=== PATIENT | male | born 1935 | race Caucasian/White ===

== ENCOUNTER 2020-08-30 13:20 | Emergency (ER) | payer MEDICARE, OTHER ==
[~2020-08-30] VITALS: Ht 175.3 cm; Wt 73.9 kg
--- NOTE | 2020-08-30 13:57 | NUR ---
MD at bedside for assessment, patient states he is Covid positive and feels like he may have pneumonia and has chosen to seek treatment, vitals are stable, 96% O2 on room air
[2020-08-30] MEDS ORDERED: MORPHINE SULFATE 2 MG/1 ML DISP.SYRIN ONE (14:12)
[2020-08-30] MEDS ORDERED: MORPHINE SULFATE 2 MG/1 ML DISP.SYRIN IM ONE (14:15)
[2020-08-30 14:23] LABS: HEMATOCRIT 39.5 % (36.7-47.1); MEAN CORPUSCULAR HEMOGLOBIN 28.8 uug (23.8-33.4); PLATELET COUNT (AUTO) 132 K/uL (152-348)
[2020-08-30 14:36] LABS: CREATININE 1.3 mg/dL (0.6-1.3); POTASSIUM 4.3 mmol/L (3.5-5.1)
--- NOTE | 2020-08-30 16:17 | NUR ---
Patient able to tolerate light exercise while maintaining oxygen saturation of 96% on room air, patient clearned for discharge by MD. Patient discharged to home in stable condition with son. Written and verbal after care instructions given. Patient verbalizes understanding of instructions. Stressed follow up or return to ER for worsening s/s.
[2020-08-30 16:23] VITALS: BP 123/64
== END 2020-08-30 16:24 | disposition home or self-care (01) ==
LOC: ER 13:20
DX: U07.1 COVID-19 (principal); J12.82 Pneumonia due to coronavirus disease 2019; E78.5 Hyperlipidemia, unspecified; I10 Essential (primary) hypertension
CPT/HCPCS: 36415; 71045; 80048; 83880; 84484; 85025; 96372; 99284; J2270; 70030-TC; A4663

== ENCOUNTER 2020-09-02 16:46 | Inpatient (IN) | payer MEDICARE, OTHER ==
[~2020-09-02] VITALS: Ht 175.3 cm; Wt 73.5 kg
[2020-09-02] MEDS ORDERED: IV NORMAL SALINE 500 ML IV ONE (17:15)
[2020-09-02] MEDS ORDERED: ACETAMINOPHEN 650 MG SUPP.RECT RC ONE ×3 (17:15→19:16)
[2020-09-02 17:50] LABS: HEMATOCRIT 38.2 % (36.7-47.1); MEAN CORPUSCULAR HEMOGLOBIN 28.7 uug (23.8-33.4); MEAN CORPUSCULAR VOLUME 85.8 fL (73.0-96.2); PLATELET COUNT (AUTO) 145 K/uL (152-348)
[2020-09-02 18:00] LABS: CREATININE 1.2 mg/dL (0.6-1.3); POTASSIUM 3.8 mmol/L (3.5-5.1)
[2020-09-02 18:19] LABS: BILIRUBIN,TOTAL 0.9 mg/dL (0.2-1.0); TOTAL PROTEIN, SERUM 7.2 g/dL (6.4-8.2)
[2020-09-02] MEDS ORDERED: ENOXAPARIN SODIUM 40 MG/0.4 ML DISP.SYRIN SQ ONE (18:45)
[2020-09-02] MEDS ORDERED: DEXAMETHASONE SOD PHOSPHATE 4 MG INJ IV ONE (18:45)
[2020-09-02] MEDS ORDERED: DEXAMETHASONE SOD PHOSPHATE 10 MG INJ ONE (19:00)
[2020-09-02] MEDS ORDERED: ALBUTEROL SULFATE 2.5 MG/3 ML NEBU NEB ONE (19:00)
[2020-09-02] MEDS ORDERED: MAGNESIUM HYDROXIDE 30 ML LIQUID UDC PO PRN (19:15)
[2020-09-02] MEDS ORDERED: Z GUARD REMEDY PASTE 57 GM TUBE TOP PRN (19:15)
[2020-09-02] MEDS ORDERED: ACETAMINOPHEN 325 MG TABLET PO PRN (19:15)
[2020-09-02] MEDS ORDERED: ONDANSETRON 4 MG/2 ML VIAL IV PRN (19:15)
[2020-09-02] MEDS ORDERED: AZITHROMYCIN 500MG/ D5W 250ML IVPB **ER PYXIS ONLY IV ONE (23:36)
[2020-09-03] VITALS: BP 114/62
[2020-09-03] MEDS: AZITHROMYCIN IV 500 MG in IV DEXTROSE 5% 250 ML IV SCH ×2 (00:13→22:07)
[2020-09-03 04:00] VITALS: BP 113/65
[2020-09-03] MEDS: PANTOPRAZOLE SODIUM 40 MG TABLET.DR PO SCH (06:05)
[2020-09-03 07:21] LABS: HEMATOCRIT 39.6 % (36.7-47.1); MEAN CORPUSCULAR HEMOGLOBIN 28.9 uug (23.8-33.4); MEAN CORPUSCULAR VOLUME 87.3 fL (73.0-96.2); PLATELET COUNT (AUTO) 145 K/uL (152-348)
[2020-09-03 07:53] LABS: MAGNESIUM 2.7 mg/dL (1.8-2.4); PHOSPHOROUS 2.3 mg/dL (2.5-4.9); POTASSIUM 4.2 mmol/L (3.5-5.1)
[2020-09-03 07:56] LABS: THYROID STIMULATING HORMONE 0.264 mIU/mL (0.358-3.740)
[2020-09-03] MEDS: DEXAMETHASONE SOD PHOSPHATE 4 MG INJ IV SCH (08:15)
[2020-09-03] MEDS ORDERED: ATOR80TA PO (10:52)
[2020-09-03] MEDS: CEFTRIAXONE 1 G in IV DEXTROSE 5% 50 ML IV SCH (12:18)
[2020-09-03 12:24] VITALS: BP 109/56
[2020-09-03] MEDS ORDERED: REMDESIVIR (CHARGED) 200 MG in IV NORMAL SALINE 210 ML IV ONE (14:00)
[2020-09-03] MEDS ORDERED: IRBE300T19 PO (14:01)
[2020-09-03] MEDS ORDERED: ATOR40TA PO (14:02)
[2020-09-03] MEDS ORDERED: GUAIFENESIN/DEXTROMETHORPHAN 5 ML UDC PO PRN (15:15)
[2020-09-03] MEDS ORDERED: NEUTRA PHOS PACKET PO ONE (15:15)
[2020-09-03 16:57] VITALS: BP 130/64
[2020-09-03] MEDS: BENZONATATE 100 MG CAPSULE PO PRN ×2 (18:17→22:07)
[2020-09-03 20:15] VITALS: BP 113/55
[2020-09-03] MEDS ORDERED: ATORVASTATIN PO SCH (21:00)
[2020-09-03] MEDS: ATORVASTATIN 40 MG TABLET PO SCH (21:00)
[2020-09-03] MEDS: ENOXAPARIN SODIUM 40 MG/0.4 ML DISP.SYRIN SQ SCH (21:00)
[2020-09-03] MEDS ORDERED: ATORVASTATIN 20 MG TABLET PO SCH (21:00)
[2020-09-03] MEDS ORDERED: AZITHROMYCIN IV 250 MG in IV DEXTROSE 5% 250 ML IV ONE (23:45)
[2020-09-04] VITALS (8 sets, daily range): BP systolic 109–133; BP diastolic 53–69
[2020-09-04] MEDS ORDERED: AZITHROMYCIN 200 MG/5 ML 15 ML ONE (00:23)
[2020-09-04] MEDS ORDERED: AZITHROMYCIN 500 MG VIAL IV ONE (00:27)
[2020-09-04] MEDS: AZITHROMYCIN IV 500 MG in IV DEXTROSE 5% 250 ML IV SCH ×2 (00:30→20:37)
[2020-09-04 06:52] LABS: HEMATOCRIT 40.4 % (36.7-47.1); MEAN CORPUSCULAR HEMOGLOBIN 28.7 uug (23.8-33.4); MEAN CORPUSCULAR VOLUME 85.8 fL (73.0-96.2); PLATELET COUNT (AUTO) 200 K/uL (152-348)
[2020-09-04] MEDS: PANTOPRAZOLE SODIUM 40 MG TABLET.DR PO SCH (06:57)
[2020-09-04 07:24] LABS: BILIRUBIN,DIRECT 0.2 mg/dL (0.0-0.2); BILIRUBIN,TOTAL 0.5 mg/dL (0.2-1.0); CREATININE 1.2 mg/dL (0.6-1.3); MAGNESIUM 2.5 mg/dL (1.8-2.4); PHOSPHOROUS 3.3 mg/dL (2.5-4.9); POTASSIUM 4.4 mmol/L (3.5-5.1)
[2020-09-04] MEDS: DEXAMETHASONE SOD PHOSPHATE 4 MG INJ IV SCH (08:53)
[2020-09-04] MEDS: LOSARTAN POTASSIUM 50 MG TABLET PO SCH (09:00)
[2020-09-04] MEDS: CEFTRIAXONE 1 G in IV DEXTROSE 5% 50 ML IV SCH (13:33)
[2020-09-04] MEDS: REMDESIVIR (CHARGED) 100 MG in IV NORMAL SALINE 100 ML IV SCH (14:41)
[2020-09-04] MEDS: BENZONATATE 100 MG CAPSULE PO PRN (15:53)
[2020-09-04] MEDS ORDERED: INSULIN REGULAR, HUMAN 300 UNIT/3 ML VIAL SQ PRN (17:30)
[2020-09-04] MEDS ORDERED: DEXTROSE 50% 50 ML DISP.SYRIN IV PRN (17:30)
[2020-09-04] MEDS: ATORVASTATIN 40 MG TABLET PO SCH (20:37)
[2020-09-04] MEDS: BLOOD SUGAR DIAGNOSTIC 1 EACH STRIP VI SCH (20:38)
[2020-09-04] MEDS: INSULIN REGULAR, HUMAN 300 UNITS/3 ML VIAL SQ PRN (20:53)
[2020-09-04] MEDS: ENOXAPARIN SODIUM 40 MG/0.4 ML DISP.SYRIN SQ SCH (22:12)
[2020-09-05] MEDS: BENZONATATE 100 MG CAPSULE PO PRN ×2 (02:27→12:36)
[2020-09-05 05:00] VITALS: BP 120/87
[2020-09-05] MEDS: PANTOPRAZOLE SODIUM 40 MG TABLET.DR PO SCH (06:16)
[2020-09-05 06:39] LABS: HEMATOCRIT 39.4 % (36.7-47.1); MEAN CORPUSCULAR HEMOGLOBIN 28.2 uug (23.8-33.4); MEAN CORPUSCULAR VOLUME 85.1 fL (73.0-96.2); PLATELET COUNT (AUTO) 224 K/uL (152-348)
[2020-09-05] MEDS: BLOOD SUGAR DIAGNOSTIC 1 EACH STRIP VI SCH ×3 (06:48→20:59)
[2020-09-05 07:00] LABS: MAGNESIUM 2.5 mg/dL (1.8-2.4); PHOSPHOROUS 2.6 mg/dL (2.5-4.9); POTASSIUM 3.8 mmol/L (3.5-5.1)
[2020-09-05 07:12] LABS: BILIRUBIN,DIRECT 0.2 mg/dL (0.0-0.2); BILIRUBIN,TOTAL 0.5 mg/dL (0.2-1.0); TOTAL PROTEIN, SERUM 6.7 g/dL (6.4-8.2)
[2020-09-05 08:00] VITALS: BP 145/63
[2020-09-05] MEDS: DEXAMETHASONE SOD PHOSPHATE 4 MG INJ IV SCH (08:31)
[2020-09-05] MEDS: LOSARTAN POTASSIUM 50 MG TABLET PO SCH (08:51)
[2020-09-05] MEDS: INSULIN REGULAR, HUMAN 300 UNITS/3 ML VIAL SQ PRN (08:53)
[2020-09-05] MEDS ORDERED: DEXTROSE 50% 50 ML DISP.SYRIN IV PRN (09:30)
[2020-09-05 12:00] VITALS: BP 120/63
[2020-09-05] MEDS: INSULIN REGULAR, HUMAN 300 UNIT/3 ML VIAL SQ PRN ×3 (12:09→21:00)
[2020-09-05] MEDS: CEFTRIAXONE 1 G in IV DEXTROSE 5% 50 ML IV SCH (12:27)
[2020-09-05] MEDS: REMDESIVIR (CHARGED) 100 MG in IV NORMAL SALINE 100 ML IV SCH (14:18)
[2020-09-05 15:14] LABS: *BILIRUBIN,URIN NEGATIVE (NEGATIVE); *BLOOD, URINE NEGATIVE (NEGATIVE); *CLARITY,URINE CLEAR (CLEAR); *COLOR,URINE YELLOW (YELLOW); *KETONES,URINE NEGATIVE (NEGATIVE); LEUKOCYTE ESTERASE ,URINE NEGATIVE (NEGATIVE); NITRITE, URINE NEGATIVE (NEGATIVE); UGLUCOSE NEGATIVE (NEGATIVE)
[2020-09-05 15:51] VITALS: BP 112/58
[2020-09-05] MEDS: ATORVASTATIN 40 MG TABLET PO SCH (20:12)
[2020-09-05] MEDS: AZITHROMYCIN IV 500 MG in IV DEXTROSE 5% 250 ML IV SCH (20:16)
[2020-09-05] MEDS: ENOXAPARIN SODIUM 40 MG/0.4 ML DISP.SYRIN SQ SCH (20:16)
[2020-09-05 20:30] VITALS: BP 121/61
[2020-09-06 00:31] VITALS: BP 136/63
[2020-09-06 04:50] VITALS: BP 143/74
[2020-09-06] MEDS: PANTOPRAZOLE SODIUM 40 MG TABLET.DR PO SCH (06:03)
[2020-09-06] MEDS: BLOOD SUGAR DIAGNOSTIC 1 EACH STRIP VI SCH ×4 (06:38→20:56)
[2020-09-06] MEDS: INSULIN REGULAR, HUMAN 300 UNIT/3 ML VIAL SQ PRN ×4 (06:39→20:59)
[2020-09-06 06:58] LABS: BILIRUBIN,DIRECT 0.3 mg/dL (0.0-0.2); BILIRUBIN,TOTAL 0.7 mg/dL (0.2-1.0); MAGNESIUM 2.5 mg/dL (1.8-2.4); PHOSPHOROUS 2.9 mg/dL (2.5-4.9); POTASSIUM 3.8 mmol/L (3.5-5.1); TOTAL PROTEIN, SERUM 7.1 g/dL (6.4-8.2)
[2020-09-06 07:48] LABS: MEAN CORPUSCULAR HEMOGLOBIN 28.8 uug (23.8-33.4); MEAN CORPUSCULAR VOLUME 86.2 fL (73.0-96.2); PLATELET COUNT (AUTO) 290 K/uL (152-348)
[2020-09-06] MEDS: DEXAMETHASONE SOD PHOSPHATE 4 MG INJ IV SCH (08:48)
[2020-09-06] MEDS: LOSARTAN POTASSIUM 50 MG TABLET PO SCH (09:04)
[2020-09-06 11:00] VITALS: BP 136/63
[2020-09-06] MEDS: CEFTRIAXONE 1 G in IV DEXTROSE 5% 50 ML IV SCH (13:09)
[2020-09-06] MEDS: REMDESIVIR (CHARGED) 100 MG in IV NORMAL SALINE 100 ML IV SCH (14:23)
[2020-09-06 16:06] VITALS: BP 118/58
[2020-09-06] MEDS: ATORVASTATIN 40 MG TABLET PO SCH (20:11)
[2020-09-06] MEDS: AZITHROMYCIN IV 500 MG in IV DEXTROSE 5% 250 ML IV SCH (20:25)
[2020-09-06] MEDS: ENOXAPARIN SODIUM 40 MG/0.4 ML DISP.SYRIN SQ SCH (20:25)
[2020-09-06 20:37] VITALS: BP 121/63
[2020-09-07] VITALS (7 sets, daily range): BP systolic 116–149; BP diastolic 56–96
[2020-09-07] MEDS: PANTOPRAZOLE SODIUM 40 MG TABLET.DR PO SCH (06:03)
[2020-09-07] MEDS: INSULIN REGULAR, HUMAN 300 UNIT/3 ML VIAL SQ PRN ×4 (06:37→21:34)
[2020-09-07] MEDS: BLOOD SUGAR DIAGNOSTIC 1 EACH STRIP VI SCH ×4 (06:37→21:33)
[2020-09-07 07:20] LABS: BILIRUBIN,DIRECT 0.3 mg/dL (0.0-0.2); BILIRUBIN,TOTAL 0.8 mg/dL (0.2-1.0); TOTAL PROTEIN, SERUM 6.6 g/dL (6.4-8.2)
[2020-09-07] MEDS: DEXAMETHASONE SOD PHOSPHATE 4 MG INJ IV SCH ×2 (08:25→09:06)
[2020-09-07] MEDS: LOSARTAN POTASSIUM 50 MG TABLET PO SCH (09:12)
[2020-09-07] MEDS: REMDESIVIR (CHARGED) 100 MG in IV NORMAL SALINE 100 ML IV SCH (13:15)
[2020-09-07] MEDS: ATORVASTATIN 40 MG TABLET PO SCH (21:28)
[2020-09-07] MEDS: ENOXAPARIN SODIUM 40 MG/0.4 ML DISP.SYRIN SQ SCH (21:33)
[2020-09-08 00:04] VITALS: BP 111/64
[2020-09-08 04:20] VITALS: BP 114/54
[2020-09-08] MEDS: PANTOPRAZOLE SODIUM 40 MG TABLET.DR PO SCH (06:23)
[2020-09-08] MEDS: BLOOD SUGAR DIAGNOSTIC 1 EACH STRIP VI SCH ×3 (07:21→16:06)
[2020-09-08] MEDS: INSULIN REGULAR, HUMAN 300 UNIT/3 ML VIAL SQ PRN ×3 (07:23→16:07)
[2020-09-08 07:28] LABS: THYROID STIMULATING HORMONE 0.176 mIU/mL (0.358-3.740)
[2020-09-08 07:46] LABS: BILIRUBIN,DIRECT 0.3 mg/dL (0.0-0.2); BILIRUBIN,TOTAL 0.9 mg/dL (0.2-1.0); CREATININE 1.1 mg/dL (0.6-1.3); MAGNESIUM 2.2 mg/dL (1.8-2.4); PHOSPHOROUS 3.7 mg/dL (2.5-4.9); POTASSIUM 4.3 mmol/L (3.5-5.1); TOTAL PROTEIN, SERUM 6.5 g/dL (6.4-8.2)
[2020-09-08] MEDS: LOSARTAN POTASSIUM 50 MG TABLET PO SCH (08:01)
[2020-09-08] MEDS: DEXAMETHASONE SOD PHOSPHATE 4 MG INJ IV SCH (08:02)
[2020-09-08 09:04] LABS: HEMATOCRIT 39.6 % (36.7-47.1); MEAN CORPUSCULAR HEMOGLOBIN 28.5 uug (23.8-33.4); PLATELET COUNT (AUTO) 296 K/uL (152-348)
[2020-09-08 11:56] VITALS: BP 130/64
[2020-09-08 15:56] VITALS: BP 129/72
[2020-09-08] MEDS ORDERED: ATOR10TA PO (16:29)
[2020-09-08] MEDS ORDERED: ALBU8.5H8 INH (16:29)
[2020-09-08] MEDS ORDERED: METH4TAB3 PO (16:29)
[2020-09-08] MEDS ORDERED: ASPI-618 PO (16:29)
[2020-09-08] MEDS ORDERED: GLIM1TAB PO (16:33)
== END 2020-09-08 17:30 | disposition home or self-care (01) | DRG 871 ==
LOC: ER 16:47 → TELE3 21:59
PROVIDERS: ADMIT Student in an Organized Health Care Education/Training Program; ATTEND Internal Medicine
PROC: XW033E5 Introduction of Remdesivir Anti-infective into Peripheral Vein, Percutaneous Approach, New Technology Group 5 (ICD-10-PCS; principal; 2020-09-03)
PROC: XW13325 Transfusion of Convalescent Plasma (Nonautologous) into Peripheral Vein, Percutaneous Approach, New Technology Group 5 (ICD-10-PCS; 2020-09-06)
DX: A41.89 Other specified sepsis (principal); U07.1 COVID-19; J12.82 Pneumonia due to coronavirus disease 2019; J96.01 Acute respiratory failure with hypoxia; E43 Unspecified severe protein-calorie malnutrition; J15.9 Unspecified bacterial pneumonia; E44.0 Moderate protein-calorie malnutrition; E87.1 Hypo-osmolality and hyponatremia; D69.6 Thrombocytopenia, unspecified; Z95.1 Presence of aortocoronary bypass graft; Z87.891 Personal history of nicotine dependence; I25.10 Atherosclerotic heart disease of native coronary artery without angina pectoris; E05.90 Thyrotoxicosis, unspecified without thyrotoxic crisis or storm; E78.5 Hyperlipidemia, unspecified; I10 Essential (primary) hypertension; E11.65 Type 2 diabetes mellitus with hyperglycemia; M45.9 Ankylosing spondylitis of unspecified sites in spine; Z68.23 Body mass index [BMI] 23.0-23.9, adult
CPT/HCPCS: 36415; 70030-TC; 71045; 83605; 83615; 83735; 84100; 84443; 85025; 85610; 85730; 86140; 86803; 86850; 86900; 86901; 87040; 87070; 87086; 87400; 87806; 93005; A4663; G0378; J0456; J0696; J1100; J1650; J1815; J3490; J7040; J7050; J7060; P9016; P9017; Q0144; U0003